=== PATIENT | female | born 1945 | race Caucasian/White ===

== ENCOUNTER 2016-09-16 11:00 | Emergency (ER) | payer MEDICARE, MEDICAID ==
[2016-09-16 11:11] VITALS: TEMP 97.6; O2SAT 98; BMI 37.9
--- NOTE | 2016-09-16 11:35 | ED PDOC ---
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 She states she missed a step while coming off the van to an adult home and fell on her back on the right side. She states she is not sure if she hit her head. Currently patient is complaining of headache, neck pain, back pain, and right wrist/hand pain. Denies chest pain, shortness of breath, fever/chills , or other complaints. Time/Duration: Prior to Arrival Symptom Onset: Sudden Symptom Course: Unchanged Modifying Factors (Text): None Associated Symptoms (Text): None Past Medical History - Provider Review Nursing Documentation Reviewed: Yes - Infectious Disease Hx of Infectious Diseases: None - Tetanus Immunization Tetanus Immunization: Unknown - Cardiac Hx Cardiac Disorders: Yes Hx Hypertension: Yes - Pulmonary Hx Respiratory Disorders: No - Neurological Hx Neurological Disorder: Yes Hx Dementia: Yes (?) - HEENT Hx HEENT Disorder: No - Renal Hx Renal Disorder: No - Endocrine/Metabolic Hx Endocrine Disorders: Yes Hx Diabetes Mellitus Type 2: Yes - Hematological/Oncological Hx Blood Disorders: No - Integumentary Hx Dermatological Disorder: No - Musculoskeletal/Rheumatological Hx Musculoskeletal Disorders: No - Gastrointestinal Hx Gastrointestinal Disorders: No - Genitourinary/Gynecological Hx Genitourinary Disorders: Yes Other/Comment: over active bladder - Psychiatric Hx Psychophysiologic Disorder: Yes Hx Depression: Yes Hx Emotional Abuse: No Hx Physical Abuse: No Hx Substance Use: No - Past Surgical History Past Surgical History: Non-Contributing - Surgical History Hx Orthopedic Surgery: Yes - Suicidal Assessment Feels Threatened In Home Enviroment: No Family/Social History - Physician Review Nursing Documentation Reviewed: Yes Family/Social History: Unknown Family HX Smoking Status: Never Smoked Hx Alcohol Use: No Hx Substance Use: No Hx Substance Use Treatment: No Allergies/Home Meds Allergies/Adverse Reactions: Allergies No Known Allergies Allergy (Verified 09/16/16 11:11) Home Medications: Home Meds Medication Instructions Recorded Confirmed Atorvastatin [Lipitor] 4 mg PO DAILY 06/14/13 09/12/14 Memantine [Namenda] 10 mg PO DAILY 06/14/13 09/12/14 Oxybutynin [Oxybutynin] 10 mg PO DAILY 06/14/13 09/12/14 Calcium Tab 600 mg PO DAILY 09/12/14 09/12/14 Linaclotide [Linzess] 145 mcg PO DAILY 09/12/14 09/12/14 Review of Systems - Physician Review All systems were reviewed & negative as marked: Yes - Review of Systems Constitutional: absent: Fevers Respiratory: absent: SOB Cardiovascular: absent: Chest Pain Gastrointestinal: absent: Abdominal Pain Musculoskeletal: Back Pain, Neck Pain, Other (Right wrist/hand pain) Neurological: Headache Physical Exam Vital Signs Reviewed: Yes Vital Signs Temp Pulse Resp BP Pulse Ox 09/16/16 14:41 80 16 146/82 98 09/16/16 13:04 82 18 148/80 98 09/16/16 11:10 97.6 F 74 20 152/87 H 98 Temperature: Afebrile Blood Pressure: Hypertensive Pulse: Regular Respiratory Rate: Normal Appearance: Positive for: Well-Appearing, Non-Toxic, Comfortable Pain Distress: None Mental Status: Positive for: Alert and Oriented X 3 - Systems Exam Head: Present: Atraumatic, Normocephalic Pupils: Present: PERRL Extroacular Muscles: Present: EOMI Conjunctiva: Present: Normal Mouth: Present: Moist Mucous Membranes Neck: Present: Normal Range of Motion, Paraspinal Tenderness (tenderness with palpation to the lower bilateral paraspinal regions) Respiratory/Chest: Present: Clear to Auscultation, Good Air Exchange. No: Respiratory Distress, Accessory Muscle Use Cardiovascular: Present: Regular Rate and Rhythm, Normal S1, S2. No: Murmurs Abdomen: Present: Normal Bowel Sounds. No: Tenderness, Distention, Peritoneal Signs Back: Present: Paraspinal Tenderness (tenderness with palpation to the bilateral lower thoarcic and upper lumbar paraspinal regions) Upper Extremity: Present: Normal ROM, NORMAL PULSES, Tenderness (tenderness to the right 5th digit), Swelling (to the right 5th digit), Capillary Refill < 2s, Deformity (mild deformity to the right 5th digit), Other (no snuff box tenderness). No: Cyanosis, Edema Lower Extremity: Present: Normal Inspection. No: Edema Neurological: Present: GCS=15, CN II-XII Intact, Speech Normal Skin: Present: Warm, Dry, Normal Color. No: Rashes Psychiatric: Present: Alert, Oriented x 3, Normal Insight, Normal Concentration Medical Decision Making ED Course and Treatment: Impression: A 71 year old female with a mechanical fall. Differential Diagnosis include but are not limited to: fracture vs. intracranial hemorrhage Plan: -- Head CT -- Cervical Spine CT -- Dorsal Thoracic Spine X-ray -- Right Hand X-ray -- LS Spine X-ray -- Right Wrist X-ray -- Reassess and disposition Progress Notes: 09/16/16 12:[address]: Creator : Nahid Veronica MD COMPARISON: None available. FINDINGS: HEMORRHAGE: No intracranial hemorrhage. BRAIN: No mass effect or edema. Age related senescent change VENTRICLES: Unremarkable. No hydrocephalus. CALVARIUM: Unremarkable. PARANASAL SINUSES: Unremarkable as visualized. No significant inflammatory changes. MASTOID AIR CELLS: Unremarkable as visualized. No inflammatory changes. OTHER FINDINGS: None. IMPRESSION: No acute intracranial abnormalities. No significant findings to account for the clinical presentation. 09/16/16 12:[address]: Creator : Nahid Veronica MD COMPARISON: None available. FINDINGS: VERTEBRAE: No fracture. Normal alignment. No destructive bony lesion. DISCS/SPINAL CANAL/NEURAL FORAMINA: No significant central canal or neural foraminal stenosis. Multilevel degenerative changes primarily C5-6 and C6-7. PARASPINAL SOFT TISSUES: Unremarkable. OTHER FINDINGS: None. IMPRESSION: No acute findings related to/accounting for the clinical presentation. 09/16/16 13:26 Right Hand X-ray: As read by me, 5th digit proximal phalangeal fracture LS Spine X-ray: As read by me, no acute fracture Right Wrist X-ray: As read by me, no acute fracture 09/16/16 13:[address] patient in a ulnar gutter splint with finger splint. Case discussed with Dr. Live (orthopedist), who agrees with the plan to place patient in a splint and discharge home. He recommends patient follow up with Dr. Garcia (hand specialist). On re-evaluation, the patient is in no acute distress. I have discussed the results and plan with the patient, who expresses understanding. Patient in agreement with plan to discharged home. Patient is stable for discharge. Patient was instructed to follow up with physician/Hand specialist in 1-2 days or return if symptoms worsen or new concerning symptoms arise. 09/16/16 14:27 I spoke with the patient sister and daughter in law on the phone to give them instruction on following up with Dr. Garcia. I let them know if they have any issue with follow up with Dr. Garcia, they can follow up with the with the [facility] orthopedic clinic. 09/16/16 14:35 Dr. Santiago called back and stated that he can see the patient at this [place] office. Agreed with splint that was placed by my EMT Bryon. Splint done appropriately. Neurovasc intact after splint. - RAD Interpretation Radiology Orders: 09/16/16 11:20 HEAD W/O CONTRAST [CT] Stat 09/16/16 11:21 CERVICAL SPINE W/O CONTRAST [CT] Stat DORSAL (THORACIC) SPINE [RAD] Stat HAND RIGHT 3 VIEWS [RAD] Stat LS SPINE WITH OBL > 18 YRS OLD [RAD] Stat WRIST, RIGHT 3 VIEWS [RAD] Stat - Medication Orders Current Medication Orders: Discontinued Medications Acetaminophen (Tylenol 325mg Tab) 650 mg PO STAT STA Stop: 09/16/16 11:22 Last Admin: 09/16/16 11:28 Dose: 650 MG MAR Pain/Vitals Document 09/16/16 11:28 RR (Rec: 09/16/16 11:28 RR [id number]) Pain Reassessment Is This A Pain ReAssessment? Yes Sleep Is patient sleeping during reassessment? No Presence of Pain Presence of Pain Yes Location Left, Right or Bilateral Bilateral Pain Location Body Site Back Description Constant Intensity 7 Scale Used Numeric Aggravating Factors ADL's Changing Position Exercise/Activity Ketorolac Tromethamine (Toradol) 60 mg IM STAT STA Stop: 09/16/16 12:39 Last Admin: 09/16/16 12:55 Dose: 60 MG IM Administration Charges Document 09/16/16 12:55 RR (Rec: 09/16/16 12:56 RR [id number]) Injection Site MAR Injection Site Left Deltoid Charges for Administration # of IM Administrations 1 - Scribe Statement The provider has reviewed the documentation as recorded by the Julio Cesar Franco Provider Scribe Attestation: All medical record entries made by the Scribe were at my direction and personally dictated by me. I have reviewed the chart and agree that the record accurately reflects my personal performance of the history, physical exam, medical decision making, and the department course for this patient. I have also personally directed, reviewed, and agree with the discharge instructions and disposition. Disposition/Present on Arrival - Present on Arrival Any Indicators Present on Arrival: No History of DVT/PE: No History of Uncontrolled Diabetes: No Urinary Catheter: No History of Decub. Ulcer: No History Surgical Site Infection Following: None - Disposition Have Diagnosis and Disposition been Completed?: Yes Diagnosis: Fall, Fracture of phalanx of right hand, closed, Back pain, Neck strain Disposition: HOME/ ROUTINE Disposition Time: 13:34 Patient Plan: Discharge Condition: IMPROVED Discharge Instructions (ExitCare): Cervical Strain (DC), Hand Fracture (ED), Head Injury (ED), Thoracic Back Strain (ED) Additional Instructions: Ash Washington, thank you for letting us take care of you today. Your provider was Dr. Verdugo. You were evaluated for a mechanical fall, finger fracture, possible head injury, back and neck strain. The emergency medical care you received today was directed at your acute symptoms. If you were prescribed any medication, please fill it and take as directed. It may take several days for your symptoms to resolve. Return to the Emergency Department if your symptoms worsen, do not improve, or if you have any other problems. Please contact your doctor or call one of the physicians/clinics you have been referred to that are listed on the Patient Visit Information form that is included in your discharge packet. Bring any paperwork you were given at discharge with you along with any medications you are taking to your follow up visit. Our treatment cannot replace ongoing medical care by a primary care provider (PCP) outside of the emergency department. Thank you for allowing the [facility] team to be part of your care today. If you had an X-Ray or CT scan: A Radiologist will review the ED reading if any change in treatment is needed we will contact you. If you had a blood, urine, or wound culture: It will take several days for the results, if any change in treatment is needed we will contact you. If you had an STI test: It will take 48 hours for the results. Please call after 1 week if you have not heard back. Referrals: Colby Santiago MD [Staff Provider] - Follow up with primary Yunior Miramontes MD [Primary Care Provider] - Follow up with primary
--- NOTE | 2016-09-16 12:21 | CT ---
PROCEDURE: CT HEAD WITHOUT CONTRAST. HISTORY: r/o cva COMPARISON: None available. TECHNIQUE: Axial computed tomography images were obtained through the head/brain without intravenous contrast. Radiation dose: Total exam DLP = 629.06 mGy-cm. This CT exam was performed using one or more of the following dose reduction techniques: Automated exposure control, adjustment of the mA and/or kV according to patient size, and/or use of iterative reconstruction technique. FINDINGS: HEMORRHAGE: No intracranial hemorrhage. BRAIN: No mass effect or edema. Age related senescent change VENTRICLES: Unremarkable. No hydrocephalus. CALVARIUM: Unremarkable. PARANASAL SINUSES: Unremarkable as visualized. No significant inflammatory changes. MASTOID AIR CELLS: Unremarkable as visualized. No inflammatory changes. OTHER FINDINGS: None. IMPRESSION: No acute intracranial abnormalities. No significant findings to account for the clinical presentation.
--- NOTE | 2016-09-16 12:25 | CT ---
PROCEDURE: CT Cervical Spine without contrast HISTORY: Trauma COMPARISON: None available. TECHNIQUE: Axial computed tomography images were obtained of the cervical spine without the use of intravenous contrast. Coronal and sagittal reformatted images were created and reviewed. Radiation dose: Total exam DLP = 525.83 mGy-cm. This CT exam was performed using one or more of the following dose reduction techniques: Automated exposure control, adjustment of the mA and/or kV according to patient size, and/or use of iterative reconstruction technique. FINDINGS: VERTEBRAE: No fracture. Normal alignment. No destructive bony lesion. DISCS/SPINAL CANAL/NEURAL FORAMINA: No significant central canal or neural foraminal stenosis. Multilevel degenerative changes primarily C5-6 and C6-7. PARASPINAL SOFT TISSUES: Unremarkable. OTHER FINDINGS: None. IMPRESSION: No acute findings related to/accounting for the clinical presentation.
[2016-09-16 14:42] VITALS: BP 146/82; PULSE 80; RESP 16
--- NOTE | 2016-09-16 15:09 | RAD ---
HISTORY: fall r/o fx COMPARISON: No prior. FINDINGS: BONES: Alignment maintained. No fracture. DISC SPACES: Normal. SOFT TISSUES: Normal. OTHER FINDINGS: None. IMPRESSION: Normal radiographs of the thoracic spine.
--- NOTE | 2016-09-16 15:10 | RAD ---
PROCEDURE: Radiographs of the Lumbar Spine. HISTORY: fall r/o fx COMPARISON: No prior. FINDINGS: BONES: Normal alignment. No listhesis. No fracture. DISC SPACES: Unremarkable. OTHER FINDINGS: Bilateral degenerative facet arthropathy L4-5 and L5-S1. IMPRESSION: No acute fracture. Degenerative facet arthropathy lower lumbar spine.
--- NOTE | 2016-09-16 15:12 | RAD ---
PROCEDURE: Right Wrist Radiographs. HISTORY: fall r/o fx COMPARISON: None. FINDINGS: Technically limited examination. No true lateral view provided. BONES: There is a minimally displaced oblique intra-articular fracture at the base of the 5th proximal phalanx. No other fracture is identified. JOINTS: Normal. No dislocation. SOFT TISSUES: Normal. OTHER FINDINGS: None. IMPRESSION: Minimally displaced oblique intra-articular fracture at the base of the 5th proximal phalanx.
--- NOTE | 2016-09-16 15:13 | RAD ---
PROCEDURE: Right Hand Radiographs. HISTORY: fall r/o fx; tender to 5th digit COMPARISON: None. FINDINGS: BONES: Oblique intra-articular fracture at the base of the 5th proximal phalanx with mild displacement. No other fracture identified. JOINTS: Or osteoarthritis of IP 1 and DIP 2 through 5. Mild osteoarthritis PIP 2 through 5. SOFT TISSUES: Normal. OTHER FINDINGS: None. IMPRESSION: Oblique intra-articular fracture base of 5th proximal phalanx. 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 .
== END 2016-09-16 14:45 | disposition home or self-care (01) ==
LOC: ED 11:00
DX: S62.616A Displaced fracture of proximal phalanx of right little finger, initial encounter for closed fracture (principal); S16.1XXA Strain of muscle, fascia and tendon at neck level, initial encounter; W17.89XA Other fall from one level to another, initial encounter; Y93.89 Activity, other specified; Y92.89 Other specified places as the place of occurrence of the external cause; M54.9 Dorsalgia, unspecified
CPT/HCPCS: 29125; 70450; 72070; 72110; 72125; 73110; 73130; 96372; 99285; J1885

== ENCOUNTER 2017-11-17 00:56 | Emergency (ER) | payer MEDICARE, MEDICAID ==
[2017-11-17 00:57] VITALS: BMI 37.9
--- NOTE | 2017-11-17 01:15 | ED PDOC ---
Arrival/HPI - General Time Seen by Provider: 11/17/17 00:58 Historian: Patient - History of Present Illness Narrative History of Present Illness (Text): 11/17/17 01:13 Ash Washington is a 72 year old female, whose past medical history includes hypertension, diabetes, and sleep apnea, who presents to the Emergency department brought in by EMS for back pain. Patient states she has been experiencing lower back pain radiating down bilateral legs since yesterday morning, notes some difficulty ambulating secondary to pain. Patient reports pain is consistent with her chronic back pain. Patient denies any fever, chills , chest pain, shortness of breath, nausea, vomiting, diarrhea, urinary symptoms , neck pain, headache, dizziness, or any other complaints. Symptom Onset: Gradual Symptom Course: Unchanged Activities at Onset: Light Context: Home Past Medical History - Provider Review Nursing Documentation Reviewed: Yes - Infectious Disease Hx of Infectious Diseases: None - Tetanus Immunization Tetanus Immunization: Unknown - Cardiac Hx Cardiac Disorders: Yes Hx Hypertension: Yes - Pulmonary Hx Respiratory Disorders: No - Neurological Hx Neurological Disorder: Yes Hx Dementia: Yes (?) - HEENT Hx HEENT Disorder: No - Renal Hx Renal Disorder: No - Endocrine/Metabolic Hx Endocrine Disorders: Yes Hx Diabetes Mellitus Type 2: Yes - Hematological/Oncological Hx Blood Disorders: No - Integumentary Hx Dermatological Disorder: No - Musculoskeletal/Rheumatological Hx Musculoskeletal Disorders: No - Gastrointestinal Hx Gastrointestinal Disorders: No - Genitourinary/Gynecological Hx Genitourinary Disorders: Yes Other/Comment: over active bladder - Psychiatric Hx Psychophysiologic Disorder: Yes Hx Depression: Yes Hx Emotional Abuse: No Hx Physical Abuse: No Hx Substance Use: No - Past Surgical History Past Surgical History: Non-Contributing - Surgical History Hx Orthopedic Surgery: Yes - Suicidal Assessment Feels Threatened In Home Enviroment: No Family/Social History - Physician Review Nursing Documentation Reviewed: Yes Family/Social History: Unknown Family HX Smoking Status: Never Smoked Hx Alcohol Use: No Hx Substance Use: No Hx Substance Use Treatment: No Allergies/Home Meds Allergies/Adverse Reactions: Allergies No Known Allergies Allergy (Verified 11/17/17 01:36) Home Medications: Home Meds Medication Instructions Recorded Confirmed Atorvastatin [Lipitor] 20 mg PO DAILY 06/14/13 11/17/17 Memantine [Namenda] 10 mg PO DAILY 06/14/13 09/12/14 Oxybutynin [Oxybutynin] 10 mg PO DAILY 06/14/13 11/17/17 Calcium Tab 600 mg PO DAILY 09/12/14 09/12/14 Linaclotide [Linzess] 145 mcg PO DAILY 09/12/14 09/12/14 Enalapril Maleate [Vasotec] 10 mg PO DAILY 11/17/17 11/17/17 Ezetimibe [Zetia] 10 mg PO DAILY 11/17/17 11/17/17 Metoprolol Tartrate [Metoprolol 50 mg PO DAILY 11/17/17 11/17/17 Tartrate] Naproxen [Naprosyn] 500 mg PO PRN PRN 11/17/17 11/17/17 SITagliptin [Januvia] 100 mg PO DAILY 11/17/17 11/17/17 Review of Systems - Physician Review All systems were reviewed & negative as marked: Yes - Review of Systems Constitutional: Normal. absent: Fevers Eyes: Normal ENT: Normal Respiratory: Normal. absent: SOB, Cough Cardiovascular: Normal. absent: Chest Pain Gastrointestinal: Normal. absent: Abdominal Pain, Diarrhea, Nausea, Vomiting Genitourinary Female: Normal. absent: Dysuria, Frequency, Hematuria Musculoskeletal: Back Pain. absent: Neck Pain Skin: Normal Neurological: Normal Endocrine: Normal Hemo/Lymphatic: Normal Psychiatric: Normal Physical Exam Vital Signs Reviewed: Yes Vital Signs Temp Pulse Resp BP Pulse Ox 11/17/17 04:50 98.2 F 82 17 125/72 100 11/17/17 01:29 97.8 F 88 18 128/88 98 Temperature: Afebrile Blood Pressure: Normal Pulse: Regular Respiratory Rate: Normal Appearance: Positive for: Well-Appearing, Non-Toxic, Comfortable Pain Distress: None Mental Status: Positive for: Alert and Oriented X 3 - Systems Exam Head: Present: Atraumatic, Normocephalic Pupils: Present: PERRL Extroacular Muscles: Present: EOMI Conjunctiva: Present: Normal Mouth: Present: Moist Mucous Membranes Neck: Present: Normal Range of Motion Respiratory/Chest: Present: Clear to Auscultation, Good Air Exchange. No: Respiratory Distress, Accessory Muscle Use Cardiovascular: Present: Regular Rate and Rhythm, Normal S1, S2. No: Murmurs Abdomen: No: Tenderness, Distention, Peritoneal Signs Back: Present: Normal Inspection Upper Extremity: Present: Normal Inspection. No: Cyanosis, Edema Lower Extremity: Present: Normal Inspection. No: Edema Neurological: Present: GCS=15, CN II-XII Intact, Speech Normal Skin: Present: Warm, Dry, Normal Color. No: Rashes Psychiatric: Present: Alert, Oriented x 3, Normal Insight, Normal Concentration Medical Decision Making ED Course and Treatment: 11/17/17 01:13 Impression: 72 year old female complaining of lower back pain radiating to bilateral legs. Plan: -- Percocet -- Reassess and disposition Prior Visits: Notes and results from previous visits were reviewed. Progress Notes: 11/17/17 04:30 CT Lumbar Spine shows: Vertebrae: There is grade I/II anterolisthesis of L4 on L5. Spondylosis is visualized at multiple lumbar and visualized lower thoracic levels. Osteopenia. The lumbar vertebral bodies are normal in height. No significant scoliosis. Facet arthropathy is identified within the lower lumbar spine. There is bilateral sacroiliac arthropathy. No acute fracture within the lumbar spine. Discs/spinal canal/neural foramina: There is flattening of the ventral border of the thecal sac at L3-4 due to a broad based disc bulge, without significant narrowing of the thecal sac. Moderate narrowing of the thecal sac is visualized at L4-5, with severe narrowing of both lateral recesses. There is no significant narrowing of the thecal sac at the remaining lumbar levels. Moderate to severe bilateral neural foraminal narrowing is identified at L4-5. Vasculature: There is atherosclerotic calcification of the abdominal aorta. Lungs: Increased interstitial markings are identified at the lung bases, with atelectatic change at the left lung base. Kidneys and ureters: There is right renal pelviectasis. Fullness of the left renal pelvis is also visualized. Stomach and bowel: Sigmoid diverticulosis is identified. IMPRESSION: 1. There is grade I/II anterolisthesis of L4 on L5. 2. Spondylosis is visualized at multiple lumbar and visualized lower thoracic levels. 3. Moderate narrowing of the thecal sac is visualized at L4-5, with severe narrowing of both lateral recesses. There is flattening of the ventral border of the thecal sac at L3-4 due to a broad based disc bulge, without significant narrowing of the thecal sac. 4. Moderate to severe bilateral neural foraminal narrowing is identified at L4- 5. This can be further evaluated with MRI. 5. There is right renal pelviectasis. Fullness of the left renal pelvis is also visualized. 6. Additional findings described above. 11/17/17 04:48 On re-evaluation, patient feels better and is in no acute distress. I have discussed the results and plan with the patient, who expresses understanding. Patient in agreement with plan to be discharged home. Patient is stable for discharge. Patient was instructed to follow up with physician or return if symptoms worsen or new concerning symptoms arise. - RAD Interpretation Radiology Orders: 11/17/17 02:28 LUMBAR SPINE W/O CONTRAST [CT] Stat Medical Social Consultant: Radiologist - Medication Orders Current Medication Orders: Discontinued Medications Oxycodone/Acetaminophen (Percocet 5/325 Mg Tab) 1 tab PO STAT STA Stop: 11/17/17 01:34 Last Admin: 11/17/17 01:43 Dose: 1 tab MAR Pain Assessment Document 11/17/17 01:43 IT (Rec: 11/17/17 01:51 IT [id number]) Pain Reassessment Is this a pain reassessment? Yes Sleep Is patient sleeping during reassessment? No Presence of Pain Presence of Pain Yes Pain Scale Used Pain Scale Used Numeric Location Left, Right or Bilateral Bilateral Upper or Lower Lower Pain Location Body Site Back - Scribe Statement The provider has reviewed the documentation as recorded by the Julio Cesar Fuentes Provider Scribe Attestation: All medical record entries made by the Scribe were at my direction and personally dictated by me. I have reviewed the chart and agree that the record accurately reflects my personal performance of the history, physical exam, medical decision making, and the department course for this patient. I have also personally directed, reviewed, and agree with the discharge instructions and disposition. Disposition/Present on Arrival - Present on Arrival Any Indicators Present on Arrival: No History of DVT/PE: No History of Uncontrolled Diabetes: No Urinary Catheter: No History Surgical Site Infection Following: None - Disposition Have Diagnosis and Disposition been Completed?: Yes Diagnosis: Back pain Disposition: HOME/ ROUTINE Disposition Time: 04:45 Condition: GOOD Discharge Instructions (ExitCare): Radiculopathy, Low Back Pain (DC) Prescriptions: Tramadol HCl [Ultram] 50 mg PO QID #10 tab Forms: [employer] (Russian)
[2017-11-17] MEDS ORDERED: Oxycodone/Acetaminophen 5/325 mg Tab PO STA (01:33)
[2017-11-17] MEDS ORDERED: Albuterol-Ipratrop 3 mg / 0.5 (3 ml) UD ONE (02:02)
--- NOTE | 2017-11-17 04:00 | CT ---
EXAM: CT Lumbar Spine Without Intravenous Contrast EXAM DATE/TIME: 11/17/2017 2:28 AM CLINICAL HISTORY: The patient age is 72 years old and is female; Pain; Low back pain Facility exam id and description: Ct lumbs lumbar spine w/o contrast TECHNIQUE: Axial computed tomography images of the lumbar spine without intravenous contrast. All CT scans at this facility use one or more dose reduction techniques, viz.: automated exposure control; ma/kV adjustment per patient size (including targeted exams where dose is matched to indication; i.e. head); or iterative reconstruction technique. Coronal and sagittal reformatted images were created and reviewed. COMPARISON: [facility] - LS SPINE WITH OBL > 18 YRS OLD 2016-09-16 12:04 FINDINGS: Vertebrae: There is grade I/II anterolisthesis of L4 on L5. Spondylosis is visualized at multiple lumbar and visualized lower thoracic levels. Osteopenia. The lumbar vertebral bodies are normal in height. No significant scoliosis. Facet arthropathy is identified within the lower lumbar spine. There is bilateral sacroiliac arthropathy. No acute fracture within the lumbar spine. Discs/spinal canal/neural foramina: There is flattening of the ventral border of the thecal sac at L3-4 due to a broad based disc bulge, without significant narrowing of the thecal sac. Moderate narrowing of the thecal sac is visualized at L4-5, with severe narrowing of both lateral recesses. There is no significant narrowing of the thecal sac at the remaining lumbar levels. Moderate to severe bilateral neural foraminal narrowing is identified at L4-5. Vasculature: There is atherosclerotic calcification of the abdominal aorta. Lungs: Increased interstitial markings are identified at the lung bases, with atelectatic change at the left lung base. Kidneys and ureters: There is right renal pelviectasis. Fullness of the left renal pelvis is also visualized. Stomach and bowel: Sigmoid diverticulosis is identified. IMPRESSION: 1. There is grade I/II anterolisthesis of L4 on L5. 2. Spondylosis is visualized at multiple lumbar and visualized lower thoracic levels. 3. Moderate narrowing of the thecal sac is visualized at L4-5, with severe narrowing of both lateral recesses. There is flattening of the ventral border of the thecal sac at L3-4 due to a broad based disc bulge, without significant narrowing of the thecal sac. 4. Moderate to severe bilateral neural foraminal narrowing is identified at L4-5. This can be further evaluated with MRI. 5. There is right renal pelviectasis. Fullness of the left renal pelvis is also visualized. 6. Additional findings described above.
[2017-11-17 05:50] VITALS: BP 125/72; PULSE 82; RESP 17; TEMP 98.2; O2SAT 100
== END 2017-11-17 04:50 | disposition home or self-care (01) ==
LOC: ED 00:56
DX: M54.9 Dorsalgia, unspecified (principal)

== ENCOUNTER 2018-07-11 08:23 | Outpatient (CLI) | payer MEDICARE, MEDICAID | END 2018-07-11 08:24 | disposition home or self-care (01) | LOC: RAD 08:23 ==